=== PATIENT | female | born 1955 | race Caucasian/White ===

== ENCOUNTER 2020-04-20 04:21 | Inpatient (IN) | payer MEDICARE, OTHER ==
--- NOTE | 2020-04-20 04:35 | ED ---
Chest Pain HPI - General Stated Complaint: Chest Pain Time Seen by Provider: 04/20/20 04:22 - History of Present Illness Initial Comments: This patient is 64-year-old woman who presents to be evaluated for substernal chest pain. She states that it started between 9 and 10 while she was watching the debate tonight. She had been at a friend's house and then she states she went to go up to her residence and the pain became worse when she climbed the [place]. She describes it as a heavy feeling. She has not noted worsening or relieving factors. MD Complaint: chest pain Onset/Timin -: hour(s) Onset: during exertion Pain Location: substernal Severity: moderate Quality: heaviness Consistency: constant Improves With: nothing Worsens With: nothing Treatments Prior to Arrival: nitroglycerin - Related Data Allergies Allergy/AdvReac Type Severity Reaction Status Date / Time No Known Allergies Allergy Verified 04/20/20 06:46 Review of Systems ROS Statement: Those systems with pertinent positive or pertinent negative responses have been documented in the HPI. ROS Other: All systems not noted in ROS Statement are negative. Constitutional: Denies: fever, chills Respiratory: Denies: cough, dyspnea Cardiovascular: Reports: as per HPI, chest pain. Denies: palpitations, orthopnea, edema, syncope Gastrointestinal: Denies: abdominal pain, nausea, vomiting, diarrhea Genitourinary: Denies: dysuria, hematuria Musculoskeletal: Denies: back pain Skin: Denies: rash Neurological: Denies: headache, weakness, numbness EKG Findings - EKG Results: EKG: interpreted by ADRIÁN VU, sinus rhythm (70 bpm), normal axis, normal QRS, normal ST/T, no acute changes General Exam General appearance: alert, in no apparent distress Head exam: Present: atraumatic, normocephalic Eye exam: Present: normal appearance. Absent: scleral icterus, conjunctival injection Neck exam: Present: normal inspection, full ROM Respiratory exam: Present: normal lung sounds bilaterally. Absent: respiratory distress, wheezes, rhonchi, stridor Cardiovascular Exam: Present: regular rate, normal rhythm, systolic murmur. Absent: diastolic murmur, rubs, gallop GI/Abdominal exam: Present: soft. Absent: distended, tenderness, guarding, rebound, rigid, mass Extremities exam: Present: normal inspection, normal capillary refill. Absent: pedal edema, calf tenderness Back exam: Present: normal inspection. Absent: CVA tenderness (R), CVA tenderness (L) Neurological exam: Present: alert Skin exam: Present: warm, dry, intact, normal color. Absent: rash Course Vital Signs 04/20/20 04/20/20 04/20/20 04:24 05:40 06:45 Temperature 98.1 F Pulse Rate 77 69 76 Respiratory 17 16 16 Rate Blood Pressure 121/83 133/93 132/84 O2 Sat by Pulse 99 95 94 L Oximetry 04/20/20 07:36 Temperature Pulse Rate 66 Respiratory 18 Rate Blood Pressure 138/88 O2 Sat by Pulse 97 Oximetry Chest Pain MDM - MDM Patient is a 64-year-old woman presenting to have evaluation for chest pain. Her initial workup is negative. Patient be admitted for stroke cardiac enzymes and telemetry monitoring. She has had previous heart work-up but states that this was at another facility she believes in [facility]. And was a number of years ago. Disposition Clinical Impression: Chest pain Disposition: ADMITTED IP TO THIS HOSP Condition: Fair Is patient prescribed a controlled substance at d/c from ED?: No
[2020-04-20 04:44] LABS: WBC 7.7 k/uL (3.8-10.6)
[2020-04-20 04:45] LABS: Basophils # (A) 0.1 k/uL (0-0.2); Basophils % (A) 1 %; Eosinophils # (A) 0.3 k/uL (0-0.7); Eosinophils % (A) 4 %; HCT 47.3 % (34.0-46.0); HGB 15.4 gm/dL (11.4-16.0); Lymphocytes # (A) 3.8 k/uL (1.0-4.8); Lymphocytes % (A) 50 %; MCH 29.6 pg (25.0-35.0); MCHC 32.5 g/dL (31.0-37.0); MCV 91.1 fL (80.0-100.0); Mean Platelet Volume 7.3; Monocytes # (A) 0.4 k/uL (0-1.0); Monocytes % (A) 6 %; Neutrophils # (A) 2.9 k/uL (1.3-7.7); Neutrophils % (A) 38 %; Platelet Count 246 k/uL (150-450); RDW 12.4 % (11.5-15.5)
--- NOTE | 2020-04-20 04:52 | XR ---
EXAMINATION TYPE: XR chest 2V DATE OF EXAM: 04/20/2020 COMPARISON: NONE HISTORY: Chest pain TECHNIQUE: 2 views FINDINGS: There is slight coarsening of pulmonary interstitial markings upper lobes. Heart size is no rmal. There is no heart failure. There are no hilar masses. There is no pleural effusion. There are c hest leads. Bony thorax is intact. IMPRESSION: Slight coarsening of the upper lobe interstitial markings consistent with mild fibrosis. Normal heart.
[2020-04-20 04:53] LABS: Partial Thromboplastin Time 23.3 sec (22.0-30.0); Prothrombin Time 10.2 sec (9.0-12.0)
[2020-04-20 04:54] LABS: ALT 14 U/L (4-34); AST 20 U/L (14-36); African American GFR (CKD) >90 (>60 ml/min/1.73 sqM); Albumin 3.9 g/dL (3.5-5.0); Alkaline Phosphatase 109 U/L (38-126); Amylase 63 U/L (30-110); Anion Gap 6 mmol/L; Blood Urea Nitrogen 20 mg/dL (7-17); Calcium 9.2 mg/dL (8.4-10.2); Carbon Dioxide 24 mmol/L (22-30); Chloride 108 mmol/L (98-107); Glucose 132 mg/dL (74-99); Non-African American GFR(CKD) >90 (>60 ml/min/1.73 sqM); Sodium 138 mmol/L (137-145); Total Bilirubin 0.5 mg/dL (0.2-1.3); Total Protein 6.6 g/dL (6.3-8.2)
[2020-04-20] MEDS ORDERED: MORPHINE SULFATE 4 MG/ML SYRINGE IV STA (05:08)
[2020-04-20] MEDS ORDERED: ASPIRIN 81 MG PO STA (05:08)
[2020-04-20] MEDS ORDERED: NITROGLYCERIN SL TABS 0.4 MG TAB SUBLINGUAL STA (05:08)
[2020-04-20] MEDS ORDERED: MORPHINE SULFATE 4 MG/ML SYRINGE IV PRN (06:37)
[2020-04-20] MEDS ORDERED: ACETAMINOPHEN TAB 325 MG TAB PO PRN (06:37)
--- NOTE | 2020-04-20 06:52 | CT ---
EXAMINATION TYPE: CT angio chest DATE OF EXAM: 04/20/2020 6:47 AM COMPARISON: Chest x-ray earlier today HISTORY: Chest pain, SOB CT DLP: 273.5 mGycm Automated exposure control for dose reduction was used. CONTRAST: CTA scan of the thorax is performed with IV Contrast, patient injected with 61 mL of Isovue 370, pulm onary embolism protocol. . FINDINGS: LUNGS: Left lung apex not completely included. Suspect mild to moderate biapical pleural/parenchymal scarring. Focal linear and irregular scarring left mid lung anteromedially near axial image 66 noted. Some respiratory motion artifact degradation with suggestion of mild areas of edema. No suspicious f ocal consolidation. No pleural effusion or pneumothorax. No suspicious masses. MEDIASTINUM: There is satisfactory enhancement of the pulmonary artery and its branches, there is no CT evidence for pulmonary embolism. There are no greater than 1 cm hilar or mediastinal lymph nodes . No cardiomegaly or pericardial effusion is seen. Coronary artery calcifications present which is noted marker for underlying coronary artery disease. Reflux of contrast into IVC and hepatic veins rob ggesting degree of right heart failure. Small hiatal hernia. [id number] concentric wall thicken ing at the hiatal hernia OTHER: Bilateral breast subglandular implants, right breast implant shows peripheral calcification. Underlying dextroconvex scoliosis centered mid thoracic spine. Moderate disc space narrowing T9-T10 l evel. IMPRESSION: 1. No CT evidence for acute pulmonary embolism. 2. Mild chronic parenchymal changes and mild edema in the lower lungs, correlate for fluid overload s rodriguez. No suspicious focal infiltrate.
[2020-04-20] MEDS: SODIUM CHLORIDE 0.9% 1,000 ML IV SCH ×2 (06:58→20:56)
[2020-04-20] MEDS ORDERED: ENOXAPARIN 80 MG/0.8 ML SYRINGE SQ SCH (07:00)
[2020-04-20] MEDS ORDERED: HEPARIN SODIUM,PORCINE 5,000 UNIT/ML 1 ML VIAL IV PRN (10:40)
[2020-04-20] MEDS ORDERED: HEPARIN SODIUM,PORCINE 5,000 UNIT/ML 1 ML VIAL IV ONE (10:40)
[2020-04-20] MEDS ORDERED: NITROGLYCERIN-D5W PMX 50 MG in DEXTROSE/WATER 1 250ML.BAG IV SCH (10:45)
[2020-04-20] MEDS ORDERED: HEPARIN SOD,PORK IN 0.45% NACL 25,000 UNIT in 0.45% NACL 1 250ML.BAG IV SCH (10:45)
[2020-04-20] MEDS ORDERED: IV FLUID CONTINUATION 900 ML IV ONE (11:10)
[2020-04-20] MEDS ORDERED: VERAPAMIL 2.5 MG/ML 2 ML AMP ONE (11:27)
[2020-04-20] MEDS ORDERED: LIDOCAINE 1% INJ 10MG/ML (20 ML MDV) ONE (11:28)
[2020-04-20] MEDS ORDERED: fentaNYL (PF) 50 MCG/ML 2 ML AMP ONE (11:28)
[2020-04-20] MEDS ORDERED: LIDOCAINE 1% INJ 10MG/ML (20 ML MDV) SQ ONE (11:29)
[2020-04-20] MEDS ORDERED: VERAPAMIL SYRINGE (5 MG/10 ML) INTRAARTER ONE (11:31)
[2020-04-20] MEDS ORDERED: fentaNYL (PF) 50 MCG/ML 2 ML AMP IVP ONE (11:32)
[2020-04-20] MEDS ORDERED: MIDAZOLAM 2 MG/2 ML VIAL IVP ONE (11:32)
[2020-04-20] MEDS ORDERED: HEPARIN SODIUM 1,000 UN/ML (10ML VL) ONE (11:38)
[2020-04-20] MEDS ORDERED: HEPARIN SODIUM 1,000 UN/ML (10ML VL) IV ONE (11:40)
[2020-04-20] MEDS ORDERED: PRASUGREL 10 MG TAB ONE (11:49)
[2020-04-20] MEDS ORDERED: PRASUGREL 10 MG TAB PO ONE (11:53)
[2020-04-20] MEDS ORDERED: IOPAMIDOL-370 125ML BTL INJ ONE (11:55)
[2020-04-20] MEDS ORDERED: IOPAMIDOL-370 100ML BTL INJ ONE (12:01)
--- NOTE | 2020-04-20 12:10 | P.PRCINT ---
Percutaneous Coronary Int. - Percutaneous Coronary Intervention Percutaneous Coronary Intervention: PROCEDURES PERFORMED: Bilateral coronary angiography, successful PCI of proximal ramus with a 2.5 x 18 mm Xience LICO. INDICATION: Non-STEMI HISTORY: Patient is a pleasant 64-year-old female without significant past me dical history who presents secondary to chest pain. She states she started having chest pain last night and then it came and went in terms of the severity until it was constant and therefore presented to emergency department. Initial EKG was unrevealing and initial troponin was negative. Second troponin was noted to be elevated with ongoing chest pain and therefore patient was urgently brought to the catheterization lab. PROCEDURE: After the risks, benefits and alternatives of the above mentioned procedure explained in detail with the patient, informed consent was obtained. A 2% lidocaine was used to anesthetize the right radial artery. A 6-Persian sheath was placed using modified Seldinger technique. Diagnostic angiography was performed at the left and right coronary artery using a FL 3.5 and a FR 5 catheter. The decision was made to intervene on the ramus. A 6Fr CLS 3.5 guide catheter was used to engage the left main. A 0.014 BMW wire was advanced into the distal vessel without difficulty. The lesion was predilated with a 2.25 x 12 mm balloon. Next, a 2.5 x 18 mm Xience LICO was deployed. Preintervention there was a 100% stenosis and MERA 0 flow and post intervention there was 0 % residual stenosis and MERA 3 flow without evidence of dissection. The wire was removed and final angiograms were taken. The right radial sheath was removed and a TR band was placed with hemostasis achieved. The patient tolerated the procedure well. Patient was transported back to the post catheterization holding area in stable condition. Conscious Sedation: Patient was monitored under the direct supervision of vision of myself for conscious sedation using Versed and fentanyl for a total duration of 31 minutes HEMODYNAMICS: Aorta: 161/92 SELECTIVE CORONARY ARTERIOGRAPHY: LEFT MAIN: The left main is a large caliber vessel which trifurcates into the LAD, ramus and circumflex. There is no significant stenosis. LEFT ANTERIOR DESCENDING CORONARY ARTERY: LAD is a large caliber vessel which wraps around to the apex. There are mild luminal irregularities of the proximal LAD and otherwise appears normal RAMUS INTERMEDIUS: The ramus has a proximal 40% stenosis and then a 100% stenosis. There is late filling from some collaterals. LEFT CIRCUMFLEX CORONARY ARTERY: Left circumflex is a moderate caliber vessel without significant stenosis. RIGHT CORONARY ARTERY: The right coronary artery is a large caliber vessel which gives off a PDA and PLV branch and is the dominant vessel. There is no significant stenosis. FINAL IMPRESSION: 1. Coronary artery disease as described above with an 100% stenosis of the ramus and mild luminal irregularities otherwise. 2. Successful PCI of proximal ramus with a 2.5 x 18 mm Xience LICO. PLAN: 1. Aggressive risk factor modification per most recent ACC/AHA guidelines. 2. Check 2-D echo.
[2020-04-20] MEDS ORDERED: ATROPINE SULFATE 0.1 MG/ML 10ML SYRINGE IV PRN (12:11)
[2020-04-20] MEDS ORDERED: NITROGLYCERIN SL TABS 0.4 MG TAB SUBLINGUAL PRN (12:11)
[2020-04-20] MEDS ORDERED: ZOLPIDEM 5 MG TAB PO PRN (12:11)
[2020-04-20] MEDS ORDERED: MAG HYDROX/AL HYDROX/SIMETH 30 ML CUP PO PRN (12:11)
[2020-04-20] MEDS ORDERED: RX INFO: IV CONTRAST WAS GIVEN 1 EACH MISC MISCELLANE PRN (12:11)
[2020-04-20] MEDS ORDERED: ONDANSETRON 4 MG/2 ML VIAL ONE (12:15)
[2020-04-20] MEDS ORDERED: ONDANSETRON 4 MG/2 ML VIAL IVP ONE (12:17)
[2020-04-20] MEDS ORDERED: PRASUGREL 10 MG TAB PO STA (12:41)
--- NOTE | 2020-04-20 17:31 | P.CRDCN ---
History of Present Illness Consult date: 04/20/20 History of present illness: HISTORY OF PRESENTING ILLNESS This is a pleasant 64-year-old female past medical history significant for tobacco abuse and asthma who presents secondary to chest pain. Patient states she has not seen a client services analyst. Patient initially started having chest pain last night which was off and on and then became more severe and therefore came to the emergency department. She said it felt like an elephant was sitting on her chest. It then started spreading down old arms to wear her arms felt heavy. She additionally admitted to some nausea. She denies prior similar history in the past. She does smoke tobacco. She has not have a history of high blood pressure, diabetes and takes no relevant medications. Patient did receive nitroglycerin with some improvement in the emergency department. She was still however had a mild 2-3 out of 10 chest pain. Initial EKG was unrevealing and initial troponin was 0.028. The second troponin resulted at 2.8 this morning and therefore we were contacted. Patient was seen and due to ongoing chest pain, recommendation was for heart catheterization. She additionally had a CAT scan performed which showed no PE. DIAGNOSTICS EKG reveals normal sinus rhythm, no significant ST or T-wave abnormalities. CTA: No evidence for PE. Mild chronic parenchymal changes and mild edema in the lower lungs, correlate for fluid overload state. Laboratory reviewed, blood cell 7.7, hemoglobin 15.4, platelets 246, creatinine 0.62, troponin 0.028, 2.84. REVIEW OF SYSTEMS At the time of my exam: CONSTITUTIONAL: Denies fever or chills. CARDIOVASCULAR: + chest pain, +shortness of breath, no orthopnea, PND or palpitations. RESPIRATORY: Denies cough. GASTROINTESTINAL: Denies abdominal pain, diarrhea, constipation, +nausea no vomiting. MUSCULOSKELETAL: Denies myalgias. NEUROLOGIC: Denies numbness, tingling or weakness. ENDOCRINE: Denies fatigue, weight change, polydipsia or polyurina. GENITOURINARY: Denies burning, hematuria or urgency with micturation. HEMATOLOGIC: Denies history of anemia or bleeding. PHYSICAL EXAMINATION Blood pressure 119/76 heart rate 62 afebrile and maintaining oxygen saturation on room air. CONSTITUTIONAL: Patient in mild discomfort HEENT: Head is normocephalic. Pupils are equal, round. Sclerae anicteric. Mucous membranes of the mouth are moist. No JVD. No carotid bruit. CHEST EXAMINATION: Lungs are clear to auscultation. No chest wall tenderness is noted on palpation or with deep breathing. HEART EXAMINATION: Regular rate and rhythm. S1, S2 heard. No murmurs, gallops or rub. ABDOMEN: Soft, nontender. Positive bowel sounds. EXTREMITIES: 2+ peripheral pulses, no lower extremity edema and no calf tenderness. NEUROLOGIC EXAMINATION: Patient is awake, alert and oriented x3. ASSESSMENT 1. Non-STEMI with ongoing chest pain 2. Tobacco abuse 3. Nausea PLAN Due to elevated troponin we recommended heart catheterization with possible PCI. Further recommendations to follow. Tobacco cessation. Check 2-D echo. Late entry Past Medical History Past Medical History: Asthma, Coronary Artery Disease (CAD), Chest Pain / Angina, COPD, GERD/Reflux, Osteoarthritis (OA), Pneumonia, Renal Disease Additional Past Medical History / Comment(s): Bronchitis, nephrolithiasis-passed stone on her own, arthritis in multiple joints. History of Any Multi-Drug Resistant Organisms: None Reported Past Surgical History: Bladder Surgery, Breast Surgery, Heart Catheterization, Heart Catheterization With Stent, Tonsillectomy Additional Past Surgical History / Comment(s): PCI with stent to ramus 04/20/20, 2003 or 2004 cardiac cath-treated meically, bilateral breast augmentation, D&Cs, bladder sling, colonoscopy, oral surgery. Past Anesthesia/Blood Transfusion Reactions: No Reported Reaction Date of Last Stent Placement:: 04/20/20 Smoking Status: Current every day smoker - Past Family History Mother Family Medical History: Congestive Heart Failure (CHF) Additional Family Medical History / Comment(s): Mother of CHF Father Family Medical History: Cancer Additional Family Medical History / Comment(s): Father of lung cancer. Medications and Allergies Home Medications Medication Instructions Recorded Confirmed Type Albuterol Sulfate [Albuterol 2 puff INHALATION RT-Q6H PRN 04/20/20 04/20/20 History Sulfate Hfa] Cholecalciferol [Vitamin D3 (25 1,000 unit PO DAILY 04/20/20 04/20/20 History Mcg = 1000 Iu)] Ibuprofen [Motrin Ib] 400 mg PO Q6H PRN 04/20/20 04/20/20 History Multivitamins, Thera [Multivitamin 1 tab PO DAILY 04/20/20 04/20/20 History (formulary)] Allergies Allergy/AdvReac Type Severity Reaction Status Date / Time No Known Allergies Allergy Verified 04/20/20 07:46 Physical Exam Vitals: Vital Signs Temp Pulse Pulse Resp BP BP Pulse Ox 04/20/20 14:56 62 16 119/76 98 04/20/20 13:56 62 16 128/76 97 04/20/20 13:26 72 16 138/81 96 04/20/20 12:56 66 16 116/68 97 04/20/20 12:41 58 L 16 139/76 96 04/20/20 12:26 56 L 16 128/67 96 04/20/20 12:19 68 16 134/65 96 04/20/20 10:19 74 18 150/94 96 04/20/20 07:36 66 18 138/88 97 04/20/20 06:45 76 16 132/84 94 L 04/20/20 05:40 69 16 133/93 95 04/20/20 04:24 98.1 F 77 17 121/83 99 Intake and Output 04/20/20 04/20/20 04/20/20 06:59 14:59 22:59 Intake Total 540 750 Output Total 300 Balance 240 750 Intake: IV 300 750 Oral 240 Output: Urine 300 Other: # Voids 1 Weight 77.111 kg 77.111 kg Results 04/20/20 04:29 04/20/20 04:29 Cardiac Enzymes 04/20/20 04/20/20 04/20/20 Range/Units 04:29 04:29 08:57 AST 20 (14-36) U/L Troponin I 0.028 2.840 H* (0.000-0.034) ng/mL 04/20/20 Range/Units 12:35 AST (14-36) U/L Troponin I 21.600 H* (0.000-0.034) ng/mL Coagulation 04/20/20 Range/Units 04:29 PT 10.2 (9.0-12.0) sec APTT 23.3 (22.0-30.0) sec CBC 04/20/20 Range/Units 04:29 WBC 7.7 (3.8-10.6) k/uL RBC 5.20 (3.80-5.40) m/uL Hgb 15.4 (11.4-16.0) gm/dL Hct 47.3 H (34.0-46.0) % Plt Count 246 (150-450) k/uL Comprehensive Metabolic Panel 04/20/20 Range/Units 04:29 Sodium 138 (137-145) mmol/L Potassium 4.0 (3.5-5.1) mmol/L Chloride 108 H (98-107) mmol/L Carbon Dioxide 24 (22-30) mmol/L BUN 20 H (7-17) mg/dL Creatinine 0.62 (0.52-1.04) mg/dL Glucose 132 H (74-99) mg/dL Calcium 9.2 (8.4-10.2) mg/dL AST 20 (14-36) U/L ALT 14 (4-34) U/L Alkaline Phosphatase 109 (38-126) U/L Total Protein 6.6 (6.3-8.2) g/dL Albumin 3.9 (3.5-5.0) g/dL Current Medications Generic Name Dose Route Start Last Admin Trade Name Freq PRN Reason Stop Dose Admin Acetaminophen 650 mg 04/20/20 06:37 04/20/20 14:45 Acetaminophen Tab 325 Mg Tab PO 650 mg Q4HR PRN Administration Mild Pain Al Hydroxide/Mg Hydroxide 30 ml 04/20/20 12:11 Mag Hydrox/Al Hydrox/Simeth 30 Ml Cup PO Q4HR PRN Heartburn Aspirin 81 mg 04/21/20 09:00 Aspirin 81 Mg PO DAILY JASEN Atropine Sulfate 0.5 mg 04/20/20 12:11 Atropine Sulfate 0.1 Mg/Ml 10ml Syringe IV ONCE PRN Symptomatic Bradycardia Sodium Chloride 1,000 mls @ 100 mls/hr 04/20/20 06:45 04/20/20 06:58 Saline 0.9% IV 100 mls/hr .Q10H JASEN Administration Metoprolol Tartrate 25 mg 04/20/20 21:00 Metoprolol Tartrate 25 Mg Tab PO BID JASEN Miscellaneous Information 1 each 04/20/20 12:11 Rx Info: Iv Contrast Was Given 1 Each Misc MISCELLANE 04/22/20 12:11 DAILY PRN Per Protocol Morphine Sulfate 4 mg 04/20/20 06:37 Morphine Sulfate 4 Mg/Ml Syringe IV Q5M PRN Chest Pain Nitroglycerin 0.4 mg 04/20/20 12:11 Nitroglycerin Sl Tabs 0.4 Mg Tab SUBLINGUAL Q5M PRN Chest Pain Prasugrel 10 mg 04/21/20 09:00 Prasugrel 10 Mg Tab PO DAILY JASEN Zolpidem Tartrate 5 mg 04/20/20 12:11 Zolpidem 5 Mg Tab PO HS PRN Insomnia Intake and Output 04/20/20 04/20/20 04/20/20 06:59 14:59 22:59 Intake Total 540 750 Output Total 300 Balance 240 750 Intake: IV 300 750 Oral 240 Output: Urine 300 Other: # Voids 1 Weight 77.111 kg 77.111 kg Patient Weight 04/21/20 06:59 Weight 77.111 kg 04/20/20 04:29 04/20/20 04:29
[2020-04-20] MEDS ORDERED: TEMAZEPAM 15 MG CAP PO PRN (20:28)
[2020-04-20] MEDS ORDERED: ALPRAZolam 0.25 MG TAB PO PRN (20:28)
[2020-04-20] MEDS ORDERED: HYDROcodone/APAP 5-325MG 1 EACH TAB PO PRN (20:28)
[2020-04-20] MEDS: METOPROLOL TARTRATE 25 MG TAB PO SCH (20:56)
[2020-04-20] MEDS: PANTOPRAZOLE 40 MG TABLET PO SCH (20:58)
[2020-04-20] MEDS: NICOTINE 14MG/24HR PATCH TRANSDERM SCH (20:58)
--- NOTE | 2020-04-20 22:43 | HP ---
HISTORY AND PHYSICAL DATE OF SERVICE: 04/20/2020 CHIEF COMPLAINT: Chest pain. HISTORY OF PRESENT ILLNESS: This 64-year-old woman with the past medical history of multiple medical problems, including history of asthma, CAD, COPD, GERD, DJD, history of pneumonia, CAD, stent, being followed by a primary physician Dr. Tipton in [facility] was living in a cottage which her family owns near [place]. The patient had sudden onset of excruciating chest pain while watching the debate yesterday. It was 9/10 in intensity. The pain was worse and the patient apparently climbed the stairs. The patient came to [facility]. EKG showed nonspecific ST-T changes. Initial troponin was 0.2. Subsequently it was 2.84 and 21.6. The patient underwent cardiac catheterization by Dr. Yo and stenting of the 100% stenosed ramus, and mid- luminal irregularities were treated with successful PCI of the proximal ramus with stenting. The patient is being closely monitored at this time. There is no history of any fever, rigor or chills. No history of headache, loss of consciousness, seizures. A 2D echo with Doppler which was done is not available. Chest CTA showed no evidence of an acute pulmonary embolism; mild chronic parenchymal changes are noted. PAST MEDICAL HISTORY: History of CAD, stent, COPD, GERD, DJD, history of pneumonia. MEDICATIONS: Medications prior to admission include multivitamins, Motrin, vitamin D3, albuterol. ALLERGIES: NONE. FAMILY HISTORY: History of CHF in the family. SOCIAL HISTORY: History of smoking. No history of alcohol intake. REVIEW OF SYSTEMS: ENT: No diminished hearing. No diminished vision. CARDIOVASCULAR SYSTEM: As mentioned earlier. RESPIRATORY SYSTEM: As mentioned earlier. GI: No nausea, vomiting, diarrhea. : No dysuria or retention. NERVOUS SYSTEM: No numbness, weakness. ALLERGY/IMMUNOLOGY: No asthma, hayfever. MUSCULOSKELETAL: As mentioned earlier. HEMATOLOGY/ONCOLOGY: No history of anemia. ENDOCRINE: No history of diabetes, hypothyroidism. CONSTITUTIONAL: As mentioned earlier. DERMATOLOGY: Negative. RHEUMATOLOGY: Negative. PSYCHIATRY: As mentioned earlier. PHYSICAL EXAMINATION: Patient is alert, oriented x3. Pulse is 69, blood pressure 112/63, respirations 17, temperature 98.8, pulse ox 96% on room air. HEENT: Conjunctivae normal. NECK: No jugular venous distention. CARDIOVASCULAR SYSTEM: S1, S2 muffled. RESPIRATORY SYSTEM: Breath sounds diminished at the bases. No rhonchi. No crackles. ABDOMEN: Soft, non-tender. No mass palpable. LEGS: No edema. No swelling. NERVOUS SYSTEM: Higher functions as mentioned earlier. Moves all 4 limbs. No focal motor or sensory deficit. LYMPHATICS: No lymph node palpable in neck, axillae or groin. SKIN: No ulcer, rash, bleeding. JOINTS: No active deforming arthropathy. LABS: WBC 7.7, hemoglobin is 15.4, sodium 138, potassium 4. Troponin noted. ASSESSMENT: 1. Acute nxa-SD-yijsher-elevation myocardial infarction, status post cardiac catheterization and stenting of the proximal ramus. 2. History of asthma. 3. History of chronic obstructive pulmonary disease. 4. Gastroesophageal reflux disease. 5. Degenerative joint disease. 6. History of coronary artery disease, stent. 7. History of nephrolithiasis. 8. History of bladder surgery. 9. History of continued ongoing nicotine dependence. 10.Bilateral breast augmentation. 11.FULL CODE. RECOMMENDATIONS AND DISCUSSION: In this 64-year-old woman who presented with multiple complex medical issues, we will monitor the patient closely, continue the antiplatelet agents. Smoking cessation. Habitrol patch. Resume the home medications. Prognosis guarded because of multiple complex medical issues. A 2D echo with Doppler. Closely follow with Cardiology. Patient is on dual antiplatelet treatment and beta blockers. Will continue to monitor. Further recommendations to follow. I recommend that the patient follow up closely with the patient's physician in the outpatient setting. A chest x-ray was done in the ER, which was reviewed personally by me. It showed some interstitial markings. I recommend followup with primary physician regarding the above-mentioned multiple laboratory findings as well as clinical findings. The patient understands and agrees. MMODL / IJN: [id number] /
--- NOTE | 2020-04-21 05:01 | ECHOF ---
Referral Reason:chest pain MEASUREMENTS -------- HEIGHT: 177.8 cm WEIGHT: 77.1 kg BP: IVSd: 0.6 cm (0.6 - 1.1) LVIDd: 4.3 cm (3.9 - 5.3) LVPWd: 0.9 cm (0.6 - 1.1) IVSs: 1.5 cm LVIDs: 2.2 cm LVPWs: 1.5 cm LAESV Index (A-L): 21.61 ml/m Ao Diam: 2.5 cm (2.0 - 3.7) AV Cusp: 1.9 cm (1.5 - 2.6) LA Diam: 2.1 cm (2.7 - 3.8) MV EXCURSION: 22.775 mm (> 18.000) MV EF SLOPE: 219 mm/s (70 - 150) EPSS: 2.1 cm MV E Alexander: 0.57 m/s MV DecT: 124 ms MV A Alexander: 0.89 m/s MV E/A Ratio: 0.64 RAP: 5.00 mmHg RVSP: 26.45 mmHg FINDINGS -------- This was a technically good study. The left ventricular size is normal. Left ventricular wall thickness is normal. Overall left vent ricular systolic function is moderately impaired with, an EF between 35 - 40 %. Consider Takostubo' s Cardiomyopathy with apical ballooning. Mid lateral LV wall motion is hypokinetic. Apical anter ior LV wall motion is hypokinetic. Apical lateral LV wall motion is hypokinetic. Apical inferio r LV wall motion is hypokinetic. Apical septum LV wall motion is hypokinetic. Mid- Inferiorlater al Hypokinesis. The right ventricle is normal in size. The left atrial size is normal. Normal LA size by volume 22+/-6 ml/m2. The right atrial size is normal. The aortic valve is trileaflet and appears structurally normal. The mitral valve is normal. Mild mitral regurgitation is present. The tricuspid valve appears structurally normal. Mild tricuspid regurgitation present. Right vent ricular systolic pressure is normal at < 35 mmHg. There is no pulmonic regurgitation present. The aortic root size is normal. Normal inferior vena cava with normal inspiratory collapse consistent with estimated right atrial pre ssure of 5 mmHg. There is no pericardial effusion. CONCLUSIONS -------- 1. This was a technically good study. 2. The left ventricular size is normal. 3. Left ventricular wall thickness is normal. 4. Overall left ventricular systolic function is moderately impaired with, an EF between 35 - 40 %. 5. Consider Takostubo's Cardiomyopathy with apical ballooning. 6. Mid lateral LV wall motion is hypokinetic. 7. Apical anterior LV wall motion is hypokinetic. 8. Apical lateral LV wall motion is hypokinetic. 9. Apical inferior LV wall motion is hypokinetic. 10. Apical septum LV wall motion is hypokinetic. 11. Mid-Inferiorlateral Hypokinesis 12. Mild mitral regurgitation is present. 13. Mild tricuspid regurgitation present. 14. There is no pericardial effusion. PARTS ROOM ASSISTANT: Joslyn Baca RDCS
[2020-04-21] MEDS: SODIUM CHLORIDE 0.9% 1,000 ML IV SCH ×2 (06:08→10:46)
[2020-04-21] MEDS: PANTOPRAZOLE 40 MG TABLET PO SCH (06:47)
[2020-04-21] MEDS: ALBUTEROL NEBULIZED 2.5 MG/3 ML INHALATION PRN ×2 (07:53→10:58)
[2020-04-21 08:33] VITALS: RESP 18
[2020-04-21 08:33] LABS: Basophils # (A) 0.1 k/uL (0-0.2); Basophils % (A) 1 %; Eosinophils # (A) 0.2 k/uL (0-0.7); Eosinophils % (A) 2 %; HCT 45.7 % (34.0-46.0); HGB 15.4 gm/dL (11.4-16.0); Lymphocytes # (A) 2.7 k/uL (1.0-4.8); Lymphocytes % (A) 33 %; MCH 31.5 pg (25.0-35.0); MCHC 33.7 g/dL (31.0-37.0); MCV 93.4 fL (80.0-100.0); Mean Platelet Volume 7.4; Monocytes # (A) 0.6 k/uL (0-1.0); Monocytes % (A) 8 %; Neutrophils # (A) 4.3 k/uL (1.3-7.7); Neutrophils % (A) 53 %; Platelet Count 216 k/uL (150-450); RBC 4.89 m/uL (3.80-5.40); RDW 12.2 % (11.5-15.5)
[2020-04-21] MEDS: METOPROLOL TARTRATE 25 MG TAB PO SCH (08:33)
[2020-04-21] MEDS: NICOTINE 14MG/24HR PATCH TRANSDERM SCH (08:33)
[2020-04-21 08:43] LABS: African American GFR (CKD) >90 (>60 ml/min/1.73 sqM); Anion Gap 3 mmol/L; Blood Urea Nitrogen 16 mg/dL (7-17); Calcium 8.8 mg/dL (8.4-10.2); Carbon Dioxide 27 mmol/L (22-30); Chloride 107 mmol/L (98-107); Cholesterol 165 mg/dL (<200); Glucose 111 mg/dL (74-99); HDL Cholesterol 53 mg/dL (40-60); LDL Cholesterol,Calculated 88 mg/dL (0-99); Non-African American GFR(CKD) >90 (>60 ml/min/1.73 sqM); Potassium 4.1 mmol/L (3.5-5.1); Sodium 137 mmol/L (137-145); Triglycerides 120 mg/dL (<150)
[2020-04-21 08:45] LABS: Prothrombin Time 10.4 sec (9.0-12.0)
[2020-04-21] MEDS ORDERED: ASPIRIN 325 MG TAB PO SCH (09:00)
[2020-04-21] MEDS ORDERED: MULTIVITAMINS, THERA 1 EACH TAB PO SCH (09:00)
[2020-04-21] MEDS ORDERED: ASPIRIN 81 MG PO SCH (09:00)
[2020-04-21] MEDS ORDERED: CHOLECALCIFEROL 1,000 UNIT TAB PO SCH (09:00)
[2020-04-21] MEDS ORDERED: PRASUGREL 10 MG TAB PO SCH (09:00)
[2020-04-21 11:26] VITALS: BP 113/56; PULSE 72; TEMP 98.1
[2020-04-21 13:06] VITALS: BMI 24.0
[2020-04-21] MEDS ORDERED: ATORVASTATIN 40 MG TAB PO SCH (13:15)
--- NOTE | 2020-04-21 15:23 | P.PN ---
Subjective Progress Note Date: 04/21/20 Principal diagnosis: Chest pain PROGRESS NOTE 04/21/2020 64-year-old female patient with medical history of smoking 1 pack per day 30+ years, asthma and recent complaints of chest pain. Patient underwent cardiac cath on 04/20/[address] Yo and is status post PCI to proximal ramus. patient sitting comfortably in bed in no acute distress. Patient has no current complaints of chest pain, chest pressure, shortness breath or palpitations. Patient has no cough or fever. Patient continue sinus rhythm on monitors heart rate, 89. Right radial site clean dry and intact. Does have bruising but pulses palpable. Patient continues with aspirin and Effient for PCI protection. Vital signs stable. 98% on room air. PHYSICAL EXAMINATION: HEENT: Head is atraumatic, normocephalic. Pupils are equal, round. Sclerae anicteric. Conjunctivae are clear. Mucous membranes of the mouth are moist. Neck is supple. There is no jugular venous distention. No carotid bruit is heard. No thyromegaly. LUNGS: Diminished to ausculation. No wheezes, rales or rhonchi. No chest wall tenderness is noted on palpation or with deep breathing. HEART: Regular rate and rhythm without murmurs, rubs or gallops. S1 and S2 heard. ABDOMEN: Abdominal exam revealed normal bowel sounds. The abdomen was soft, non- tender, and without masses, organomegaly, or appreciable enlargement of the abdominal aorta. EXTREMITIES: Examination of the extremities revealed easily palpable radial, femoral and pedal pulses. There was no cyanosis, clubbing or edema. No calf tenderness noted. VASCULAR: Radial and dorsalis pedis pulses palpated, no evidence of clubbing. NEUROLOGIC: Patient is awake, alert and oriented x3. There were no obvious focal neurologic abnormalities. RIGHT radial access site CDI, no bleed, no hematoma and good pulse. FINAL IMPRESSION: 1. CAD status post PCI to ramus 2. troponin elevation 3. smoking addiction 4. hypertension 5. hyperlipidemia PLAN: Patient to continue antiplatelet therapy with aspirin 81 mg and Effient 10 mg daily. Add Atorvastatin 40 mg once daily. Okay from a cardiology perspective for discharge. Patient to follow-up with Dr. Yo in one week at office. Objective - Vital Signs Vital signs: Vital Signs Temp 98.1 F 04/21/20 11:26 Pulse 72 04/21/20 11:37 Resp 18 04/21/20 11:26 BP 113/56 04/21/20 11:26 Pulse Ox 98 04/21/20 11:26 Intake & Output 04/20/20 04/21/20 04/21/20 18:59 06:59 18:59 Intake Total 1290 118 Output Total 300 Balance 990 118 Weight 77.111 kg 76.1 kg 76.1 kg Intake: IV 1050 Oral 240 118 Output: Urine 300 Other: # Voids 0 1 - Labs CBC & Chem 7: 04/21/20 07:20 04/21/20 07:20 Labs: Abnormal Lab Results - Last 24 Hours (Table) 04/21/20 Range/Units 07:20 Glucose 111 H (74-99) mg/dL
--- NOTE | 2020-04-21 17:21 | DS ---
DISCHARGE SUMMARY FINAL DIAGNOSES: 1. Acute uoa-CI-ejnjdiu-elevation myocardial infarction status post cardiac catheterization and stenting of the proximal ramus. 2. History of asthma. 3. History of chronic obstructive pulmonary disease. 4. Gastroesophageal reflux disease. 5. Degenerative joint disease. 6. History of coronary artery disease/stent. 7. History of nephrolithiasis. 8. History of bladder surgery. 9. History of continued ongoing nicotine dependence. 10.Bilateral breast augmentation history. 11.FULL CODE. DISCHARGE DISPOSITION: The patient will be discharged in stable prognosis with guarded prognosis. Cardiology cleared the patient for discharge. HISTORY OF PRESENT ILLNESS: This 64-year-old woman with a past medical history of multiple medical problems being followed by primary physician in [place], [place], was admitted with chest pain and features of rye-OB-czbysmy-elevation myocardial infarction. Patient underwent cardiac catheterization and stenting by Cardiology. Please refer to Cardiology notes for further details. Patient improved significantly. Patient was given antiplatelet agents and beta blockers. On exam, vitals are stable. Cardio: S1, S2. Abdomen soft. Nervous system: No focal deficits. DISCHARGE ADVICE AND MEDICATIONS: 1. Diet is cardiac diet. 2. Activity limited until followup. 3. Follow up with primary physician in 2-3 days. 4. Follow up with Cardiology as recommended. Medications will be as follows: 1. Albuterol p.r.n. 2. Multivitamins 1 p.o. daily. 3. Vitamin D3 1000 daily. 4. Aspirin 81 mg daily. 5. Effient 10 mg daily. 6. Lopressor 25 mg b.i.d. 7. Nitrostat 0.4 sublingual p.r.n. Once again, the patient discharged in stable condition. Guarded prognosis. MMODL / IJN: [id number] /
== END 2020-04-21 14:10 | disposition home or self-care (01) | DRG 247 ==
LOC: EC 04:21 → 3NCARDOBS 06:37 → 3SCARD 12:07 → OBSVTOIN 13:41 → 3SCARD 15:29
PROVIDERS: ADMIT Hospitalist; ATTEND Hospitalist
PROC: B2111ZZ Fluoroscopy of Multiple Coronary Arteries using Low Osmolar Contrast (ICD-10-PCS; principal; 2020-04-20 14:10)
PROC: 027034Z Dilation of Coronary Artery, One Artery with Drug-eluting Intraluminal Device, Percutaneous Approach (ICD-10-PCS; principal; 2020-04-20 14:10)
PROC: 4A023N7 Measurement of Cardiac Sampling and Pressure, Left Heart, Percutaneous Approach (ICD-10-PCS; principal; 2020-04-20 14:10)
DX: I21.4 Non-ST elevation (NSTEMI) myocardial infarction (principal); F17.200 Nicotine dependence, unspecified, uncomplicated; I25.10 Atherosclerotic heart disease of native coronary artery without angina pectoris; J44.9 Chronic obstructive pulmonary disease, unspecified; K21.9 Gastro-esophageal reflux disease without esophagitis; M19.90 Unspecified osteoarthritis, unspecified site; I10 Essential (primary) hypertension; E78.5 Hyperlipidemia, unspecified; Z87.01 Personal history of pneumonia (recurrent); Z87.442 Personal history of urinary calculi; Z95.5 Presence of coronary angioplasty implant and graft; Z90.89 Acquired absence of other organs; Z98.890 Other specified postprocedural states; Z87.898 Personal history of other specified conditions; Z79.899 Other long term (current) drug therapy; Z80.1 Family history of malignant neoplasm of trachea, bronchus and lung; Z82.49 Family history of ischemic heart disease and other diseases of the circulatory system
CPT/HCPCS: 36415; 71046; 71275; 80048; 80053; 80061; 82150; 83690; 83735; 84484; 85025; 85610; 85730; 93005; 93306; 93454; 94640; 96365; 96372; 96375; 99285